=== PATIENT | female | born 2005 | race Caucasian/White ===

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

== ENCOUNTER 2023-03-16 16:26 | Emergency (ER) | payer OTHER, SELFPAY ==
[2023-03-16 16:44] VITALS: BP 111/64; PULSE 69; RESP 18; TEMP 36.8; O2SAT 100
--- NOTE | 2023-03-16 16:52 | PC.NURSE ---
mother up to desk states they got ahold of pts doctor and is going to leave to see them.
== END 2023-03-16 16:52 | disposition left against medical advice (07) ==
LOC: ANHED 17:05
DX: Z53.21 Procedure and treatment not carried out due to patient leaving prior to being seen by health care provider (principal)
CPT/HCPCS: 99199

== ENCOUNTER → 2023-04-05 15:15 | Outpatient (CLI) | payer BC, SELFPAY ==
--- NOTE | ~2023-04-05 | MR_ITS ---
EXAMINATION: MR knee RT wo con DATE: 04/05/2023 16:06 INDICATION: Knee trauma, internal derangement suspected TECHNIQUE: Magnetic resonance imaging (MRI) of the right knee was performed without intravenous contr ast. Sequences included axial PD-weighted FS FSE, coronal PD-weighted FSE and PD-weighted FS FSE, sag ittal PD-weighted FSE, and sagittal T2-weighted FS FSE. COMPARISON: None. FINDINGS: Medial compartment: Meniscus and cartilage intact. Lateral compartment: Meniscus and cartilage intact. Patellofemoral compartment: Cartilage and retinacula intact. Ligaments and tendons: Abnormal signal and thickening at the origin of the ACL. Mild abnormal signal superficial and deep to the fibers of the MCL. The PCL, and LCL are intact. Remaining flexor and extensor tendons are intact . Fluid: Small volume joint fluid. Osseous/other: Mild marrow edema in the posterolateral aspect of the lateral tibial plateau and the posterior aspect of the lateral femoral condyle. IMPRESSION: Partial ACL tear. Mild partial tear of the MCL. Mild marrow edema in the lateral tibial plateau and lateral femoral condyle. Small joint effusion. Reviewed, dictated and finalized at location [facility]
== END ==
PROVIDERS: PCP Family Medicine Sports Medicine; Visit Provider Family Medicine Sports Medicine
DX: S83.411A Sprain of medial collateral ligament of right knee, initial encounter (principal); S83.511A Sprain of anterior cruciate ligament of right knee, initial encounter; M25.461 Effusion, right knee; X58.XXXA Exposure to other specified factors, initial encounter
CPT/HCPCS: 73721

== ENCOUNTER 2024-02-15 18:33 | Emergency (ER) | payer OTHER, SELFPAY ==
[2024-02-15 18:34] VITALS: BP 125/68; PULSE 63; RESP 16; TEMP 36.6; O2SAT 98
--- NOTE | 2024-02-15 21:54 | PC.NURSE ---
Pt was called to be taken back to a room and did not show up.
== END 2024-02-15 23:42 | disposition left against medical advice (07) ==
PROVIDERS: PCP Family Medicine Sports Medicine
DX: R00.0 Tachycardia, unspecified (principal)
CPT/HCPCS: 99199

== ENCOUNTER 2024-05-24 08:01 | Emergency (ER) | payer BC, SELFPAY ==
--- NOTE | 2024-05-24 08:03 | ED.URI ---
HPI - URI/Sore Throat General Chief Complaint: Upper Respiratory Infection Stated Complaint: Strep Symptoms Time Seen by Provider: 05/24/24 08:03 Source: patient Mode of arrival: ambulatory Limitations: no limitations History of Present Illness HPI Narrative: Teresa is a 18 year old female patient presenting to the clinic today with c/o fatigue, feeling feverish, sore throat, slight runny nose, and cough x1 day. No known sick contacts. Denies any shortness of breath or chest pain.. MD elicited complaint: fever, cough, sore throat and nasal congestion Related Data Allergies Allergy/AdvReac Type Severity Reaction Status Date / Time No Known Allergies Allergy Verified 05/24/24 08:09 Review of Systems Review of Systems: Pertinent positives per HPI. Patient denies any rash, headache, visual changes, dizziness, shortness of breath, chest pain, palpitations, nausea, vomiting, diarrhea, constipation, abdominal pain, or any urinary issues. PMFSH Comments At the time of my signature, I reviewed and agree with the nursing past medical, surgical, social, and family history. There is no relevant family history pertinent to the patient complaint. Exam Narrative: General: Well-developed, well nourished, in no apparent distress Head: Normocephalic, atraumatic Eyes: Pupils equally round and reactive to light bilaterally, EOM intact, sclera and conjunctive clear, no discharge, lids normal Ears: TMs intact and clear, ear canals clear, no drainage, grossly hearing normal. Nose: Nares patent, no discharge, no inflammation, no sinus tenderness. Mouth: Oral pharynx red with bilateral tonsillar swelling with exudate, no masses, good dentition, MMM. Neck: Supple, trachea midline, no enlargement of anterior or posterior cervical nodes, no thyroid masses or goiter palpable. Cardio: Regular rate and rhythm, s1 and s2 normal, no murmur appreciated. Resp: Clear to auscultation bilaterally, no rhonchi, rales, wheezing or rubs Course Course Emergency Course: Portions of this record may have been created with voice recognition software. Level of Care: Express Care Visit Vital Signs Vital signs: Vital Signs Temperature 36.6 C 05/24/24 08:13 Pulse Rate 113 H 05/24/24 08:13 Respiratory Rate 16 05/24/24 08:13 Blood Pressure 111/62 05/24/24 08:13 Pulse Oximetry 99 05/24/24 08:13 Temperature 36.6 C 05/24/24 08:13 Pulse Rate 113 H 05/24/24 08:13 Respiratory Rate 16 05/24/24 08:13 Blood Pressure 111/62 05/24/24 08:13 Pulse Oximetry 99 05/24/24 08:13 Vital signs reviewed MDM - URI/Sore Throat MDM Narrative Medical decision making narrative: At the time of visit patient is resting comfortably on the exam table. Patient appears to be nontoxic. Labs: Strep test was obtained and positive in the clinic today. Plan: Patient has strep pharyngitis. Prescription for amoxicillin was sent to the pharmacy. Supportive measures were discussed with the patient and they voiced understanding discharge instructions and agrees to treatment plan. Return precautions reviewed Differential Diagnosis Differential diagnosis: Likely upper respiratory infection, otitis media, sinusitis, viral infection, bronchitis, influenza, pharyngitis and other (COVID, mono) Discharge Plan Discharge Clinical Impression: Strep pharyngitis Patient Disposition: Home, Self-Care Condition: Stable Instructions: Antibiotic Form, Strep Throat (ED) Additional Instructions: Strep test is positive in the clinic today. Change your toothbrush in 24 hours after initiation of the antibiotics Take prescription medications only as prescribed-amoxicillin Increase fluids and stay well hydrated Tylenol/motrin for pain/fever Flonase and OTC antihistamines as directed Vicks vapor rub to open sinuses Sinus rinses for congestion Cepacol spray, cough drops, throat lozenges, warm tea with honey/lemon, gargle salt water to soothe throat BRAT diet for diarrhea Clear liquids x 24 hours then advance as tolerated for nausea/vomiting Go to the ED if you develop a worsening in your condition- high fever not controlled by Tylenol or Motrin, dehydration, weakness, lethargy, shortness of breath, or chest pain. Follow up with your PCP in 3-5 days if symptoms persist. Patient Language: Monegasque Prescriptions: New amoxicillin 875 mg tablet 875 mg PO Q12H 10 Days Qty: 20 0RF Follow-up/Referrals: UNKNOWN,DOCTOR [Primary Care Provider] - Time of Disposition: 08:22 Quality NIHSS Nursing Documentation ED NIHSS nursing documentation: reviewed/agree
[2024-05-24 08:13] VITALS: BP 111/62; PULSE 113; RESP 16; TEMP 36.6; O2SAT 99
[2024-05-24 08:26] LABS: EDSTREPNEGPOS1 Positive (Negative)
== END 2024-05-24 08:30 | disposition home or self-care (01) ==
PROVIDERS: Emergency Provider Nurse Practitioner Family
DX: J02.0 Streptococcal pharyngitis (principal)
CPT/HCPCS: 87880; 99213; G0463

== ENCOUNTER 2024-06-10 17:40 | Emergency (ER) | payer BC, SELFPAY ==
[2024-06-10 17:51] VITALS: BP 103/86; PULSE 82; RESP 16; TEMP 36.7; O2SAT 100
[2024-06-10 18:00] LABS: EDSTREPNEGPOS1 Negative (Negative)
--- NOTE | 2024-06-10 18:12 | ED.URI ---
HPI - URI/Sore Throat General Chief Complaint: Upper Respiratory Infection Stated Complaint: SORE THROAT Time Seen by Provider: 06/10/24 17:55 Source: patient Mode of arrival: ambulatory Limitations: no limitations History of Present Illness HPI Narrative: 18-year-old female presents with complaint of sore throat, fatigue, body aches for 2 days. Patient was diagnosed with strep throat on May 24. Took antibiotic for 3 days then forgot for 2 days and then picked antibiotic back up in was taking again. Finished antibiotic around June 05. Sore throat began several days after. All systems reviewed and negative except as noted above. Related Data Allergies Allergy/AdvReac Type Severity Reaction Status Date / Time No Known Allergies Allergy Verified 06/10/24 17:47 Review of Systems Review of Systems: CONSTITUTIONAL: Denies fever, chills, or sweats. Reports fatigue. EYES: Denies visual changes, redness, or discharge. ENT: Denies rhinorrhea, congestion. Reports sore throat. Denies otalgia. CARDIOVASCULAR: Denies chest pain, palpitations, or edema. RESPIRATORY: Denies cough or dyspnea. GASTROINTESTINAL: Denies abdominal pain, nausea, vomiting, or diarrhea. GENITOURINARY: Denies dysuria or hematuria. SKIN: Denies rash or itching. MUSCULOSKELETAL: Denies back pain, joint pain. Reports myalgia. NEUROLOGIC: Denies headache, numbness, or weakness. PSYCHIATRIC: Denies anxiety or depression. All other systems reviewed are negative, except as documented in HPI. PMFSH Comments At time of signature, agree with nursing past medical, surgical, social and family history. There is no relevant family history pertinent to the presenting complaint. Exam Narrative: GENERAL: This is a well-nourished, well-developed patient, in no apparent distress. HEAD: normocephalic, atraumatic. EYES: PERRL. Sclera clear/white. Vision is grossly intact. EARS: External ears normal, auditory canals clear and without drainage, TMs normal without perforation. Hearing grossly intact. NOSE: External nose normal with no obvious nasal discharge, nares without redness, no rhinorrhea. THROAT: Mucous membranes moist, erythematous with mild swelling. No exudates NECK: Neck supple, non-tender without lymphadenopathy, masses or thyromegaly. CARDIOVASCULAR: Regular rate and rhythm without murmurs, gallops, or rubs. RESPIRATORY: Clear to auscultation. Breath sounds equal bilaterally. No wheezes, rales, or rhonchi. SKIN: warm, Dry, intact with no suspicious lesions or rash, good texture and turgor. NEURO: awake, alert, and oriented to person, place and time. There were no obvious focal neurologic abnormalities. EXTREMITIES: No joint tenderness, effusion, or edema noted. Course Course Level of Care: Express Care Visit Vital Signs Vital signs: Vital Signs Temperature 36.7 C 06/10/24 17:51 Pulse Rate 82 06/10/24 17:51 Respiratory Rate 16 06/10/24 17:51 Blood Pressure 103/86 06/10/24 17:51 Pulse Oximetry 100 06/10/24 17:51 Temperature 36.7 C 06/10/24 17:51 Pulse Rate 82 06/10/24 17:51 Respiratory Rate 16 06/10/24 17:51 Blood Pressure 103/86 06/10/24 17:51 Pulse Oximetry 100 06/10/24 17:51 Reviewed MDM - URI/Sore Throat MDM Narrative Medical decision making narrative: Due to recent antibiotic use, strep test could be inaccurate. Due to recent strep throat diagnosis and patient's symptoms, will treat patient with antibiotic. Patient is well-appearing, nontoxic. Please be advised this is a medical document. It is intended for [id number] communication. It is written in medical language and may contain unfamiliar abbreviations or verbiage. Medical documents are intended to carry relevant information, facts as evident, and the clinical opinion of the practitioner at the time of the encounter. This report may have been done utilizing a voice recognition system. Attempts have been made to correct errors. However, there may be uncorrected grammatical, spelling, and recognition errors present. The file time of this note does not necessarily represent the time of service. Differential Diagnosis Differential diagnosis: Likely upper respiratory infection, sinusitis, viral infection and pharyngitis Lab Data Labs: Lab Results 06/10/24 Range/Units 17:58 POC Grp A Strep Screen Negative (Negative) Discharge Plan Discharge Clinical Impression: Acute pharyngitis Patient Disposition: Home, Self-Care Condition: Stable Instructions: Antibiotic Form, Pharyngitis (ED) Additional Instructions: Your strep test was negative today. Due to your symptoms I am prescribing an antibiotic. Take take antibiotic as prescribed until gone. Change toothbrush after taking antibiotic for 24 hours. Take Tylenol or ibuprofen every 6-8 hours as needed for pain and fever. See your primary care physician if symptoms are not improving. Patient Language: Belarusian Prescriptions: New azithromycin 250 mg tablet See Rx Instructions .ROUTE .COMPLEX Qty: 6 0RF Rx Instructions: For 250 mg dose pack: take 500 mg today (day 1), then 250 mg for 4 days (days 2-5) Follow-up/Referrals: PHYSICIAN,IMPROVEMENT LEADER [Primary Care Provider] - Time of Disposition: 17:58
== END 2024-06-10 18:03 | disposition home or self-care (01) ==
PROVIDERS: Emergency Provider Nurse Practitioner Family
DX: J02.9 Acute pharyngitis, unspecified (principal)
CPT/HCPCS: 87081; 87880; 99213; G0463